=== PATIENT | female | born 1965 | race Caucasian/White ===

== ENCOUNTER 2021-09-20 21:31 | Emergency (ER) | payer BC, SELFPAY ==
[2021-09-20 21:34] VITALS: BP 187/89; PULSE 80; RESP 16; TEMP 36.7; O2SAT 98; BMI 29.0
--- NOTE | 2021-09-20 21:48 | PC.NURSE ---
provider made aware of the eye bleed, seen pt and bleeding is coming from the left lower lid, presser applied per md order.
--- NOTE | 2021-09-20 22:38 | PC.NURSE ---
at 2148 pt was seen by dr sanchez in the triage room. he examined the eye to see where the blood is coming from, lower left corner small round area on the inner lid. pt was made aware this could be a vessell or a small lac. pt stated she understood to come back to triage if bleeding increased or any vision changes. pt stated she understood the need to keep pressure to stop the bleed. steral 4x4 gaues given to p.
== END 2021-09-20 22:30 | disposition left against medical advice (07) ==
PROVIDERS: Emergency Provider Emergency Medicine; PCP Family Medicine
DX: H02.89 Other specified disorders of eyelid (principal)
CPT/HCPCS: 99281; 99282